=== PATIENT | female | born 1945 | race Caucasian/White ===

== ENCOUNTER 2017-11-26 02:08 | Emergency (ER) | payer SELFPAY ==
--- NOTE | 2017-11-26 02:20 | NUR ---
INFORMED BY JOHN/RN "PT NOT IN LOBBY OR HALLWAY"
--- NOTE | 2017-11-26 02:40 | NUR ---
INFORMED BY ADMITTING "PT LEFT"
== END 2017-11-26 02:42 | disposition left against medical advice (07) ==
LOC: ER 02:10
DX: Z53.21 Procedure and treatment not carried out due to patient leaving prior to being seen by health care provider (principal)